=== PATIENT | male | born 1975 | race African-American/Black ===

== ENCOUNTER 2016-11-12 03:25 | Inpatient (IN) | payer OTHER ==
[~2016-11-12] VITALS: Ht 180.3 cm; Wt 68.1 kg
--- NOTE | ~2016-11-12 | HC ---
[facility] [place] [address] CONSULTATION Name: GIANNI RAPP Room #: 445-P [facility] [place] ..#: [id number] Admission: 11/12/16 Attend Phys: David Koehler MD Discharge: Date of : 75 Report #: [id number] THIS REPORT FOR: //name// CC: David PENN PCP DATE OF SERVICE: 11/12/2016 REASON FOR CONSULTATION: Rib fracture, left apical pneumothorax. IMPRESSION: 1. Rib fracture, left apical pneumothorax. 2. Altered mental status/encephalopathy. 3. Coagulopathy with INR 1.6. 4. Leukocytosis without bandemia. 5. Possible urinary tract infection with positive nitrite and trace ketones. HISTORY OF PRESENT ILLNESS: A 41-year-old male on nonrebreather, sat 100%, attempted to arouse, but was unable. He did open his eyes, did not follow commands. Per chart, brought into Emergency by law enforcements, status post arrest and rib pain. The patient was unable to say why and how this happened. Other history, please see rest of chart. I have told nurse to inform primary to further evaluate altered mental status. PHYSICAL EXAMINATION: VITAL SIGNS: Temp 97.5, pulse 73, respirations 20, BP 130/93. No subcu air noted. LUNGS: Clear anteriorly. HEART: Regular. ABDOMEN: Bowel sounds present. EXTREMITIES: Showed no edema. EYES: Resisted opening eyes. He was receiving IV fluids. We will follow closely with you. CT chest ordered. Further evaluation per primary as this may be trauma related. Suggest surgeon and because of altered mental status, suggest further evaluation. By: [id number] Lisandro Lorenzana MD /nt
[2016-11-12 03:27] VITALS: BP 123/85
[2016-11-12 05:11] LABS: ABSOLUTE NEUTROPHILS 12.5 thou/uL (1.4-8.2); BASOPHILS 0.3 % (0.0-2.0); HEMATOCRIT 42.8 % (42.0-52.0); HEMOGLOBIN 14.1 gm/dL (14.0-18.0); LYMPHOCYTES 11.2 % (24.0-44.0); MCH 27.9 pg (26.0-34.0); MCHC 32.9 g/dL (28.0-37.0); MCV 84.8 fL (80.0-100.0); MONOCYTES 9.6 % (1.0-8.0); PLATELET COUNT 242 thou/uL (150-400); POLYS 78.9 % (36.0-66.0); RBC 5.05 mil/uL (4.50-6.00); RDW 14.4 % (10.5-14.5); WBC 15.8 thou/uL (4.0-11.0)
[2016-11-12 05:13] LABS: MANUAL DIFF NO
[2016-11-12 05:18] LABS: CALCIUM 9.1 mg/dL (8.5-10.1); CREATININE 1.1 mg/dL (0.7-1.3); POTASSIUM 3.5 mmol/L (3.5-5.1)
[2016-11-12 05:25] LABS: APTT 24.7 Seconds (24.5-32.8); INR 1.6; PROTIME 15.8 Seconds (9.3-11.4)
[2016-11-12 05:35] VITALS: BP 140/94
[2016-11-12 05:47] VITALS: BP 130/93
[2016-11-12] MEDS ORDERED: NOHOMEMEDICATIONS (06:16)
[2016-11-12 07:26] LABS: URINE BILIRUBIN NEGATIVE (Negative); URINE BLOOD NEGATIVE (Negative); URINE COLOR DARK YELLOW; URINE GLUCOSE-RANDOM* NEGATIVE (Negative); URINE KETONES TRACE (Negative); URINE LEUKOCYTES-REFLEX NEGATIVE (Negative); URINE PROTEIN (DIPSTICK) 2+ (Negative); URINE SPECIFIC GRAVITY >= 1.030 (1.003-1.035); URINE UROBILINOGEN 0.2 E.U./dl (0.2-1.0)
[2016-11-12 07:37] LABS: AMORPHOUS URATES Many /LPF (None Seen); CASTS None Seen /LPF (None Seen); SQUAMOUS 0-3 Few /LPF (0-3); URINE RBC None Seen /HPF (0-2); URINE WBC-REFLEX None Seen /HPF (0-5)
[2016-11-12 08:46] VITALS: BP 121/79
[2016-11-12 09:39] LABS: ABG SAMPLE TYPE ARTERIAL; BE(vivo) -2.1 mmol/L (-2 to +3); HCO3 21.7 mmol/L (22.0-26.0); LACTATE 0.97 mmol/L (0.5-2.0); O2(CT) 19.8 mL/dL (15.0-23.0); O2Hb 96.1 % (92.0-98.0); PCO2 34.5 mmHg (35.0-45.0); PO2 93.5 mmHg (80.0-100.0); pH 7.416 (7.360-7.450); sO2 97.3 % (92.0-98.0); tCO2 22.7 mmol/L (24.0-30.0)
[2016-11-12 09:40] LABS: ABG COMMENT NO COMPLICATIONS; STICK SITE L.RADIAL
[2016-11-12 12:21] LABS: AMP/METHAMP POSITIVE (Negative); BARBITURATES Negative (Negative); BENZODIAZEPINES Negative (Negative); COCAINE POSITIVE (Negative); METHADONE Negative (Negative); OPIATES POSITIVE (Negative); PCP POSITIVE (Negative); THC POSITIVE (Negative)
[2016-11-12 17:01] VITALS: BP 139/98
[2016-11-12 20:50] VITALS: BP 115/77
[2016-11-13 04:05] VITALS: BP 128/83
[2016-11-13 05:48] LABS: HEMATOCRIT 43.2 % (42.0-52.0); HEMOGLOBIN 13.8 gm/dL (14.0-18.0); MCH 27.8 pg (26.0-34.0); MCHC 31.9 g/dL (28.0-37.0); MCV 87.3 fL (80.0-100.0); RBC 4.95 mil/uL (4.50-6.00); RDW 14.8 % (10.5-14.5); WBC 10.6 thou/uL (4.0-11.0)
[2016-11-13 05:58] LABS: CALCIUM 8.4 mg/dL (8.5-10.1); CREATININE 0.9 mg/dL (0.7-1.3)
[2016-11-13 08:00] VITALS: BP 128/92
[2016-11-13] MEDS ORDERED: TRAMADOL 50 MG50 MG PO (08:46)
[2016-11-13 10:47] VITALS: BP 128/92
[2016-11-13 12:43] VITALS: BP 128/92
== END 2016-11-13 12:36 | disposition home or self-care (01) | DRG 199 ==
LOC: ER 03:25 → EROBS 04:39 → 4S 04:39
PROVIDERS: Emergency Medicine; Family Medicine; Internal Medicine Pulmonary Disease; Nurse Practitioner Family
DX: J93.9 Pneumothorax, unspecified (principal); G93.40 Encephalopathy, unspecified; S22.31XA Fracture of one rib, right side, initial encounter for closed fracture; D68.9 Coagulation defect, unspecified; F14.90 Cocaine use, unspecified, uncomplicated; F12.90 Cannabis use, unspecified, uncomplicated; X58.XXXA Exposure to other specified factors, initial encounter; F11.90 Opioid use, unspecified, uncomplicated; F17.210 Nicotine dependence, cigarettes, uncomplicated; D72.829 Elevated white blood cell count, unspecified; Y93.89 Activity, other specified; Y92.89 Other specified places as the place of occurrence of the external cause; Y99.8 Other external cause status; Z86.19 Personal history of other infectious and parasitic diseases
CPT/HCPCS: 10100